=== PATIENT | female | born 1960 | race Caucasian/White ===

== ENCOUNTER 2020-10-31 17:57 | Emergency (ER) | payer OTHER ==
[~2020-10-31] VITALS: Ht 170.2 cm; Wt 81.6 kg
[2020-10-31] MEDS ORDERED: LISI10TA29 PO (18:22)
[2020-10-31] MEDS ORDERED: GABA600T12 PO (18:22)
[2020-10-31] MEDS ORDERED: FOLI1TAB94 PO (18:22)
[2020-10-31] MEDS ORDERED: METH2.5T PO (18:22)
[2020-10-31] MEDS ORDERED: GLUC3SPR NS (18:22)
[2020-10-31] MEDS ORDERED: IBUP-1953 PO (18:22)
[2020-10-31] MEDS ORDERED: LISI2.5T2 PO (18:22)
[2020-10-31] MEDS ORDERED: IBUP-1957 PO (18:22)
[2020-10-31] MEDS ORDERED: TRAZ-257 PO (18:22)
[2020-10-31] MEDS ORDERED: CYCL5TAB PO (18:22)
[2020-10-31] MEDS ORDERED: BUPR300T52 PO (18:25)
[2020-10-31] MEDS ORDERED: FLUO20CA42 PO (18:25)
[2020-10-31] MEDS ORDERED: APRE30TA2 PO (18:25)
[2020-10-31] MEDS ORDERED: LINA5TAB PO (18:25)
[2020-10-31] MEDS ORDERED: ATOR80TA PO (18:25)
[2020-10-31] MEDS ORDERED: ADAL40PE SUBCUT (18:31)
[2020-10-31] MEDS ORDERED: DULA0.75 SQ (18:31)
[2020-10-31] MEDS ORDERED: IV NS 1000 ML 1,000 ML IV ONE ×3 (18:45→20:00)
[2020-10-31] MEDS ORDERED: ONDANSETRON 4 MG/2 ML VIAL IV ONE (18:45)
[2020-10-31] MEDS ORDERED: HYDROMORPHONE 1 MG/1 ML DISP.SYRIN IV ONE (18:45)
--- NOTE | 2020-10-31 19:10 | NUR ---
Recieved report from CHASTITY King
[2020-10-31 19:41] LABS: HEMATOCRIT 30.8 % (31.2-41.9); MEAN CORPUSCULAR HEMOGLOBIN 29.3 uug (24.7-32.8); MEAN CORPUSCULAR VOLUME 88.1 fL (75.5-95.3); PLATELET COUNT (AUTO) 247 K/uL (179-408)
[2020-10-31 19:45] LABS: CREATININE 2.9 mg/dL (0.6-1.3); POTASSIUM 3.8 mmol/L (3.5-5.1)
[2020-10-31 19:51] LABS: BILIRUBIN,DIRECT 0.1 mg/dL (0.0-0.2); BILIRUBIN,TOTAL 0.3 mg/dL (0.2-1.0); TOTAL PROTEIN, SERUM 7.4 g/dL (6.4-8.2)
[2020-10-31] MEDS ORDERED: ONDANSETRON 4 MG/2 ML VIAL ONE (19:56)
[2020-10-31] MEDS ORDERED: HYDROMORPHONE 1 MG/1 ML DISP.SYRIN ONE (19:57)
[2020-10-31 21:02] LABS: *BILIRUBIN,URIN NEGATIVE (NEGATIVE); *BLOOD, URINE NEGATIVE (NEGATIVE); *COLOR,URINE YELLOW (YELLOW); *KETONES,URINE NEGATIVE (NEGATIVE); *UROBILINOGEN,URINE 0.2 E.U./dl (NORMAL); LEUKOCYTE ESTERASE ,URINE TRACE (NEGATIVE); NITRITE, URINE NEGATIVE (NEGATIVE); UGLUCOSE NEGATIVE (NEGATIVE)
[2020-10-31 21:05] LABS: *CLARITY,URINE SLIGHTLY HAZY (CLEAR); BACTERIA,URINE FEW /HPF (NONE SEEN); RBC,URINE 0-3 /HPF (0-3); SQUAMOUS EPITHELIAL CELL,UR FEW /HPF (NONE SEEN)
[2020-10-31] MEDS ORDERED: DIPH1TAB PO (21:25)
[2020-10-31] MEDS ORDERED: ONDA4TAB5 GT (21:25)
[2020-10-31] MEDS ORDERED: OXYC-128 PO (21:26)
--- NOTE | 2020-10-31 23:01 | NUR ---
Patient discharged to home in stable condition. Written and verbal after care instructions given. Patient verbalizes understanding of instructions. Stressed follow up or return to ER for worsening s/s. No episodes of n/v/d. Denies any GI/ distress. No c/o pain/discomfort at this time. Accompanied by daughter. Steady gait.
[2020-10-31 23:05] VITALS: BP 126/73
== END 2020-10-31 23:06 | disposition home or self-care (01) ==
LOC: ER 18:04
DX: K52.9 Noninfective gastroenteritis and colitis, unspecified (principal); E11.22 Type 2 diabetes mellitus with diabetic chronic kidney disease; N18.9 Chronic kidney disease, unspecified; Z79.899 Other long term (current) drug therapy; E87.1 Hypo-osmolality and hyponatremia; D64.9 Anemia, unspecified; I12.9 Hypertensive chronic kidney disease with stage 1 through stage 4 chronic kidney disease, or unspecified chronic kidney disease
CPT/HCPCS: 36415; 80048; 80076; 81001; 82550; 85025; 85651; 87040; 96361; 96374; 96375; 99285; J1170; J2405; A4663; J7030

== ENCOUNTER 2022-08-19 22:06 | Inpatient (IN) | payer OTHER ==
[~2022-08-19] VITALS: Ht 165.1 cm; Wt 61.2 kg
[2022-08-19] MEDS: IV NORMAL SALINE 1000 ML BAG IV ONE (00:30)
[~2022-08-19 22:06] MED LIST: ADAL40PE SUBCUT; APRE30TA2 PO; ATOR80TA PO; BUPR300T52 PO; CYCL5TAB PO; DIPH1TAB PO; DULA0.75 SQ; FLUO20CA42 PO; FOLI1TAB94 PO; GABA600T12 PO; GLUC3SPR NS; IBUP-1953 PO; IBUP-1957 PO; LINA5TAB PO; LISI10TA29 PO; LISI2.5T14 PO; METH2.5T PO; ONDA4TAB5 GT; OXYC-128 PO; TRAZ-257 PO
[2022-08-19] MEDS ORDERED: IV NORMAL SALINE 1000 ML BAG IV ONE (22:30)
[2022-08-19 22:37] LABS: VENT MODE, VBG RA
[2022-08-19 23:07] LABS: HEMATOCRIT 24.7 % (31.2-41.9); MEAN CORPUSCULAR VOLUME 84.1 fL (75.5-95.3); PLATELET COUNT (AUTO) 360 K/uL (179-408)
[2022-08-19 23:24] LABS: ETHANOL < 3 MG/DL (0-0)
[2022-08-20 00:08] LABS: ALANINE AMINOTRANSFERASE 26 U/L (14-59); ALKALINE PHOSPHATASE 161 U/L (50-136); ASPARTATE AMINOTRANSFERASE 33 U/L (15-37); BILIRUBIN,DIRECT 0.1 mg/dL (0.0-0.2); BILIRUBIN,TOTAL 0.1 mg/dL (0.2-1.0); CARBON DIOXIDE 26 mmol/L (21-32); CHLORIDE 93 mmol/L (98-107); CREATININE 1.6 mg/dL (0.6-1.3); TOTAL PROTEIN, SERUM 7.5 g/dL (6.4-8.2); UREA NITROGEN, BLOOD 25 mg/dL (7-18)
[2022-08-20 00:10] LABS: GLUCOSE 689 mg/dL (74-106)
[2022-08-20 00:18] LABS: *BILIRUBIN,URIN NEGATIVE (NEGATIVE); *CLARITY,URINE CLEAR (CLEAR); *COLOR,URINE YELLOW (YELLOW); *KETONES,URINE NEGATIVE (NEGATIVE); *UROBILINOGEN,URINE 0.2 E.U./dl (NORMAL); LEUKOCYTE ESTERASE ,URINE NEGATIVE (NEGATIVE); NITRITE, URINE NEGATIVE (NEGATIVE)
[2022-08-20 00:24] LABS: *BLOOD, URINE NEGATIVE (NEGATIVE); UGLUCOSE 2+ (NEGATIVE)
[2022-08-20 00:30] LABS: *AMPHETAMINE, URINE NEGATIVE (NEGATIVE); *CANNABINOID, URINE NEGATIVE (NEGATIVE); *COCCAINE, URINE NEGATIVE (NEGATIVE); *PHENCYCLIDINE SCREEN,URINE NEGATIVE (NEGATIVE)
[2022-08-20] MEDS: IV NORMAL SALINE 1000 ML BAG IV ONE (00:30)
[2022-08-20 00:34] LABS: MAGNESIUM 1.5 mg/dL (1.8-2.4); PHOSPHOROUS 2.9 mg/dL (2.5-4.9)
[2022-08-20 00:36] LABS: BACTERIA,URINE NONE SEEN /HPF (NONE SEEN); SQUAMOUS EPITHELIAL CELL,UR FEW /HPF (NONE SEEN); WBC,URINE 0-3 /HPF (0-3)
[2022-08-20] MEDS ORDERED: MAGNESIUM SULFATE/D5W 100 ML IV SCH (00:45)
[2022-08-20] MEDS ORDERED: MORPHINE SULFATE 4 MG/1 ML DISP.SYRIN IV ONE (00:45)
[2022-08-20] MEDS ORDERED: MORPHINE SULFATE 4 MG/1 ML DISP.SYRIN ONE (00:46)
[2022-08-20] MEDS ORDERED: IV NORMAL SALINE 1000 ML BAG IV ONE (02:45)
[2022-08-20] MEDS ORDERED: INSULIN REGULAR, HUMAN 300 UNIT/3 ML VIAL IV ONE ×2 (02:45→04:15)
[2022-08-20] MEDS ORDERED: INSULIN REGULAR, HUMAN 300 UNIT/3 ML VIAL ONE (02:47)
[2022-08-20] MEDS ORDERED: INSULIN REGULAR, HUMAN 300 UNITS/3 ML VIAL SQ PRN (05:00)
[2022-08-20] MEDS ORDERED: DEXTROSE 50% 50 ML DISP.SYRIN IV PRN (05:00)
[2022-08-20] MEDS ORDERED: ONDANSETRON 4 MG/2 ML VIAL IV PRN (05:00)
[2022-08-20] MEDS: BLOOD SUGAR DIAGNOSTIC 1 EACH STRIP VI SCH ×4 (06:19→20:53)
[2022-08-20] MEDS: IV NS 1000 ML 1,000 ML IV PRN ×2 (06:24→21:10)
[2022-08-20 07:39] LABS: CREATININE 1.3 mg/dL (0.6-1.3); POTASSIUM 3.9 mmol/L (3.5-5.1)
[2022-08-20] MEDS: INSULIN REGULAR, HUMAN 300 UNIT/3 ML VIAL SQ PRN ×2 (08:02→11:46)
[2022-08-20 08:17] LABS: HEMATOCRIT 22.9 % (31.2-41.9); MEAN CORPUSCULAR VOLUME 82.2 fL (75.5-95.3); PLATELET COUNT (AUTO) 354 K/uL (179-408)
[2022-08-20] MEDS: ENOXAPARIN SODIUM 40 MG/0.4 ML DISP.SYRIN SQ SCH (08:47)
[2022-08-20] MEDS: MAGNESIUM SULFATE/D5W 100 ML IV SCH ×2 (11:54→13:02)
[2022-08-20 11:55] VITALS: BP 172/67
[2022-08-20] MEDS: REMEDY ESSENTIAL ZINC PASTE 113 GM TOP SCH ×2 (14:45→20:53)
[2022-08-20 15:59] VITALS: BP 158/68
[2022-08-20] MEDS ORDERED: [UNRECOGNIZED DRUG - CODE] TP (17:40)
[2022-08-20] MEDS ORDERED: [UNRECOGNIZED DRUG - OTHER] (17:40)
[2022-08-20 20:00] VITALS: BP 146/62
[2022-08-20] MEDS ORDERED: PIPERACILLIN/TAZOBACTAM/D5W 50 ML IV ONE (21:14)
[2022-08-20] MEDS: PIPERACILLIN SODIUM/TAZOBACTAM 3.375 G in IV DEXTROSE 5% 50 ML IV SCH (21:20)
[2022-08-20] MEDS: ACETAMINOPHEN 325 MG TABLET PO PRN (21:25)
[2022-08-21] MEDS ORDERED: PIPERACILLIN/TAZOBACTAM/D5W 50 ML IV ONE (00:51)
[2022-08-21] MEDS: PIPERACILLIN SODIUM/TAZOBACTAM 3.375 G in IV DEXTROSE 5% 50 ML IV SCH (05:05)
[2022-08-21 05:42] VITALS: BP 152/59
[2022-08-21] MEDS: BLOOD SUGAR DIAGNOSTIC 1 EACH STRIP VI SCH ×4 (06:36→20:49)
[2022-08-21 07:18] LABS: HEMATOCRIT 22.4 % (31.2-41.9); MEAN CORPUSCULAR HEMOGLOBIN 26.8 uug (24.7-32.8); MEAN CORPUSCULAR VOLUME 81.5 fL (75.5-95.3); PLATELET COUNT (AUTO) 384 K/uL (179-408)
[2022-08-21 07:39] LABS: CREATININE 1.2 mg/dL (0.6-1.3); POTASSIUM 3.9 mmol/L (3.5-5.1)
[2022-08-21] MEDS: REMEDY ESSENTIAL ZINC PASTE 113 GM TOP SCH ×2 (09:59→20:52)
[2022-08-21] MEDS: ENOXAPARIN SODIUM 40 MG/0.4 ML DISP.SYRIN SQ SCH (10:10)
[2022-08-21] MEDS: ACETAMINOPHEN 325 MG TABLET PO PRN (10:40)
[2022-08-21] MEDS: INSULIN REGULAR, HUMAN 300 UNIT/3 ML VIAL SQ PRN (10:47)
[2022-08-21 11:42] VITALS: BP 148/68
[2022-08-21] MEDS: IV NS 1000 ML 1,000 ML IV PRN (12:46)
[2022-08-21] MEDS: METOPROLOL TARTRATE 25 MG TABLET PO SCH ×2 (12:46→20:44)
[2022-08-21] MEDS: PIPERACILLIN SODIUM/TAZOBACTAM 3.375 G in IV DEXTROSE 5% 100 ML IV SCH ×2 (12:54→21:21)
[2022-08-21] MEDS ORDERED: PIPERACILLIN SODIUM/TAZOBACTAM 3.375 G in IV DEXTROSE 5% 50 ML IV SCH (14:00)
[2022-08-21] MEDS ORDERED: [UNRECOGNIZED DRUG - OTHER] TP PRN (15:00)
[2022-08-21 15:56] VITALS: BP 143/63
[2022-08-21] MEDS ORDERED: BIOXTRON PO (19:47)
[2022-08-21] MEDS ORDERED: FERR325T28 PO (19:47)
[2022-08-21] MEDS ORDERED: SUCR1TAB PO (19:47)
[2022-08-21] MEDS ORDERED: INSU100I26 SQ (19:47)
[2022-08-21] MEDS ORDERED: APRE30TA2 PO (19:47)
[2022-08-21 20:00] VITALS: BP 173/75
[2022-08-22 04:41] VITALS: BP 158/69
[2022-08-22] MEDS: PIPERACILLIN SODIUM/TAZOBACTAM 3.375 G in IV DEXTROSE 5% 100 ML IV SCH (05:20)
[2022-08-22 06:38] LABS: HEMATOCRIT 23.2 % (31.2-41.9); MEAN CORPUSCULAR HEMOGLOBIN 27.1 uug (24.7-32.8); MEAN CORPUSCULAR VOLUME 81.4 fL (75.5-95.3); PLATELET COUNT (AUTO) 374 K/uL (179-408)
[2022-08-22 07:02] LABS: THYROID STIMULATING HORMONE 3.501 mIU/mL (0.358-3.740)
[2022-08-22] MEDS: BLOOD SUGAR DIAGNOSTIC 1 EACH STRIP VI SCH ×4 (07:29→21:12)
[2022-08-22 07:33] LABS: BILIRUBIN,TOTAL 0.2 mg/dL (0.2-1.0); CREATININE 1.2 mg/dL (0.6-1.3); MAGNESIUM 1.9 mg/dL (1.8-2.4); PHOSPHOROUS 3.7 mg/dL (2.5-4.9); POTASSIUM 3.9 mmol/L (3.5-5.1)
[2022-08-22] MEDS: METOPROLOL TARTRATE 25 MG TABLET PO SCH ×2 (09:24→21:05)
[2022-08-22] MEDS: LISINOPRIL 10 MG TABLET PO SCH (09:24)
[2022-08-22] MEDS: REMEDY ESSENTIAL ZINC PASTE 113 GM TOP SCH ×2 (09:25→21:07)
[2022-08-22] MEDS: ENOXAPARIN SODIUM 40 MG/0.4 ML DISP.SYRIN SQ SCH (09:46)
[2022-08-22 11:09] VITALS: BP 144/63
[2022-08-22] MEDS: PROTEIN SUPPLEMENT (PROSTAT) 30 ML LIQUID PO SCH ×2 (12:16→17:19)
[2022-08-22] MEDS: INSULIN REGULAR, HUMAN 300 UNIT/3 ML VIAL SQ PRN ×2 (12:18→17:20)
[2022-08-22] MEDS: METRONIDAZOLE 500 MG TABLET PO SCH ×2 (14:06→21:06)
[2022-08-22] MEDS: levoFLOXacin 500 MG TABLET PO SCH (14:06)
[2022-08-22] MEDS: MIRALAX 17 GM POWD.PACK PO SCH (14:06)
[2022-08-22] MEDS: IV NS 1000 ML 1,000 ML IV PRN (14:14)
[2022-08-22 16:05] VITALS: BP 136/64
[2022-08-22 20:00] VITALS: BP 135/58
[2022-08-22] MEDS: DOCUSATE SODIUM 100 MG CAPSULE PO SCH (21:05)
[2022-08-23 04:00] VITALS: BP 161/71
[2022-08-23] MEDS: ACETAMINOPHEN 325 MG TABLET PO PRN ×2 (04:40→16:13)
[2022-08-23] MEDS: METRONIDAZOLE 500 MG TABLET PO SCH ×2 (05:21→13:35)
[2022-08-23 06:31] LABS: HEMATOCRIT 22.7 % (31.2-41.9); MEAN CORPUSCULAR VOLUME 81.9 fL (75.5-95.3); PLATELET COUNT (AUTO) 343 K/uL (179-408)
[2022-08-23] MEDS: BLOOD SUGAR DIAGNOSTIC 1 EACH STRIP VI SCH ×3 (06:36→17:16)
[2022-08-23 07:25] LABS: CREATININE 1.4 mg/dL (0.6-1.3); MAGNESIUM 1.7 mg/dL (1.8-2.4); PHOSPHOROUS 3.4 mg/dL (2.5-4.9); POTASSIUM 3.6 mmol/L (3.5-5.1)
[2022-08-23] MEDS: INSULIN REGULAR, HUMAN 300 UNIT/3 ML VIAL SQ PRN ×2 (08:14→12:25)
[2022-08-23] MEDS: MIRALAX 17 GM POWD.PACK PO SCH ×2 (08:15→09:00)
[2022-08-23] MEDS: METOPROLOL TARTRATE 25 MG TABLET PO SCH (08:15)
[2022-08-23] MEDS: DOCUSATE SODIUM 100 MG CAPSULE PO SCH (08:15)
[2022-08-23] MEDS: PROTEIN SUPPLEMENT (PROSTAT) 30 ML LIQUID PO SCH ×3 (08:15→17:00)
[2022-08-23] MEDS: LISINOPRIL 10 MG TABLET PO SCH (08:21)
[2022-08-23] MEDS ORDERED: MAGNESIUM OXIDE 400 MG TABLET PO ONE (08:30)
[2022-08-23] MEDS: ENOXAPARIN SODIUM 40 MG/0.4 ML DISP.SYRIN SQ SCH (08:51)
[2022-08-23] MEDS: REMEDY ESSENTIAL ZINC PASTE 113 GM TOP SCH (08:51)
[2022-08-23] MEDS ORDERED: [UNRECOGNIZED DRUG - OTHER] TOP PRN (09:13)
[2022-08-23] MEDS ORDERED: MAGNESIUM CITRATE 296 ML BOTTLE PO ONE (10:00)
[2022-08-23 11:30] VITALS: BP 151/65
[2022-08-23] MEDS ORDERED: PROT30LI PO (13:35)
[2022-08-23] MEDS ORDERED: INSU100I26 SQ (13:35)
[2022-08-23] MEDS: levoFLOXacin 500 MG TABLET PO SCH (13:35)
[2022-08-23] MEDS ORDERED: METR500T PO (13:35)
[2022-08-23] MEDS ORDERED: LISI10TA29 PO (13:35)
[2022-08-23] MEDS ORDERED: DOCU-141 PO (13:35)
[2022-08-23] MEDS ORDERED: LEVO500T90 PO (13:35)
[2022-08-23] MEDS ORDERED: METO25TA6 PO (13:35)
[2022-08-23] MEDS ORDERED: POLY17PO4 PO (13:35)
[2022-08-23 16:13] VITALS: BP 173/73
[2022-08-23] MEDS ORDERED: hydrALAZINE HCL 50 MG TABLET PO ONE (16:30)
[2022-08-23 16:32] VITALS: BP 173/73
== END 2022-08-23 17:43 | disposition home or self-care (01) | DRG 871 ==
LOC: ER 22:07 → TELE3 08-20 03:00 → MEDSURG3 08-20 10:30
PROVIDERS: ADMIT Nurse Practitioner Acute Care; ATTEND Internal Medicine
DX: A41.9 Sepsis, unspecified organism (principal); E43 Unspecified severe protein-calorie malnutrition; N17.0 Acute kidney failure with tubular necrosis; J69.0 Pneumonitis due to inhalation of food and vomit; J18.9 Pneumonia, unspecified organism; E87.20 Acidosis, unspecified; E87.1 Hypo-osmolality and hyponatremia; D68.59 Other primary thrombophilia; J91.8 Pleural effusion in other conditions classified elsewhere; R56.9 Unspecified convulsions; Z89.431 Acquired absence of right foot; M06.9 Rheumatoid arthritis, unspecified; Z74.01 Bed confinement status; Z20.822 Contact with and (suspected) exposure to COVID-19; K56.41 Fecal impaction; L40.50 Arthropathic psoriasis, unspecified; F41.9 Anxiety disorder, unspecified; F32.A Depression, unspecified; E83.42 Hypomagnesemia; Z79.4 Long term (current) use of insulin; Z79.620 Long term (current) use of immunosuppressive biologic; Z79.84 Long term (current) use of oral hypoglycemic drugs; E11.40 Type 2 diabetes mellitus with diabetic neuropathy, unspecified; E11.51 Type 2 diabetes mellitus with diabetic peripheral angiopathy without gangrene; D64.9 Anemia, unspecified; I10 Essential (primary) hypertension; G31.84 Mild cognitive impairment of uncertain or unknown etiology; E11.65 Type 2 diabetes mellitus with hyperglycemia
CPT/HCPCS: 36415; 36600; 70450; 71045; 74018; 83550; 83605; 83690; 83735; 83930; 83935; 84100; 84300; 84443; 84484; 84550; 85025; 87040; 93005; A4663; C1758; G0378; G0480; J1650; J1815; J2270; J2543; J3475; J7040